=== PATIENT | female | born 1975 | race African-American/Black ===

== ENCOUNTER 2022-10-31 03:00 | Inpatient (IN) | payer MEDICAID ==
[~2022-10-31] VITALS: Ht 162.6 cm; Wt 54.5 kg
[2022-10-31] MEDS ORDERED: ONDANSETRON HCL 4MG/2ML INJ IV STA ×2 (03:03→05:52)
[2022-10-31] MEDS ORDERED: PANTOPRAZOLE SODIUM 40 MG/VIAL IV STA (03:03)
[2022-10-31] MEDS ORDERED: MORPHINE SULFATE 4 MG/ML CPJ (NOT FOR IM USE) IV STA ×2 (03:03→05:52)
[2022-10-31] MEDS ORDERED: MAGNESIUM/ALUMINUM HYDROXIDE/SIMETHICONE 30ML UDC PO STA (03:03)
[2022-10-31] MEDS ORDERED: VISCOUS LIDOCAINE 2% 15 ML UDC PO STA (03:03)
[2022-10-31] MEDS ORDERED: SODIUM CHLORIDE 0.9% 1,000 ML IV ONE ×2 (03:15→06:00)
[2022-10-31 03:41] LABS: BASOPHILS % 3.3 % (0.0-2.0); EOSINOPHILS % 0.9 % (0.0-5.0); HEMATOCRIT. 23.2 % (36.0-48.0); LYMPHOCYTES % 11.5 % (20.0-50.0); MEAN CORPUSCULAR VOLUME 51.5 fL (81.0-99.0); MEAN PLATELET VOLUME 8.3 fl (7.4-10.4); MONOCYTES % 10.9 % (2.0-8.0); NEUTROPHILS % 73.4 % (40.0-76.0); PLATELET 604 x1000/uL (130-400); RED CELL DISTRIBUTION WIDTH 29.1 % (11.6-14.6)
[2022-10-31 03:48] LABS: CHLORIDE 108 mEq/L (98-107)
[2022-10-31 03:51] LABS: PROTHROMBIN TIME 10.9 sec (9.6-11.0)
[2022-10-31 03:56] LABS: HEMOGLOBIN. 6.3 g/dL (12.0-16.0)
[2022-10-31 04:00] LABS: ETHANOL BLOOD < 10 mg/dL
[2022-10-31 04:01] LABS: HCG SCREEN NEGATIVE
[2022-10-31 04:17] LABS: PLATELET ESTIMATE INCREASED
[2022-10-31] MEDS ORDERED: MAGNESIUM/ALUMINUM HYDROXIDE/SIMETHICONE 30ML UDC PO NR (05:15)
[2022-10-31] MEDS ORDERED: PANTOPRAZOLE SODIUM 40 MG/VIAL IV NR (05:15)
[2022-10-31] MEDS ORDERED: ONDANSETRON HCL 4MG/2ML INJ IV NR (05:15)
[2022-10-31] MEDS ORDERED: MORPHINE SULFATE 4 MG/ML CPJ (NOT FOR IM USE) IV NR (05:15)
[2022-10-31] MEDS ORDERED: VISCOUS LIDOCAINE 2% 15 ML UDC PO NR (05:15)
[2022-10-31] MEDS ORDERED: PANTOPRAZOLE SODIUM 40 MG/VIAL IV ONE (06:00)
[2022-10-31 06:23] LABS: AMYLASE 384 IU/L (25-115)
[2022-10-31] MEDS ORDERED: POTASSIUM CHLORIDE 20MEQ TABLET SR PO ONE (08:45)
[2022-10-31] MEDS ORDERED: POTASSIUM CHLORIDE 20MEQ TABLET SR PO NR (10:18)
[2022-10-31 12:06] LABS: HEMATOCRIT. 26.7 % (36.0-48.0); HEMOGLOBIN. 7.5 g/dL (12.0-16.0); MEAN CORPUSCULAR HEMOGLOBIN 15.8 pg (28.0-32.0); MEAN CORPUSCULAR VOLUME 56.1 fL (81.0-99.0); MEAN PLATELET VOLUME 8.7 fl (7.4-10.4); PLATELET 571 x1000/uL (130-400); RED BLOOD CELL COUNT 4.77 mill/uL (4.2-5.4); RED CELL DISTRIBUTION WIDTH 33.9 % (11.6-14.6)
[2022-10-31 12:07] LABS: CHLORIDE 109 mEq/L (98-107)
[2022-10-31 12:16] LABS: TOTAL IRON BINDING CAPACITY 413 ug/dL (250-450)
[2022-10-31 12:53] LABS: VITAMIN B12 SERUM 445 pg/mL (211-911)
[2022-10-31 13:11] LABS: FERRITIN < 5 ng/mL (10-291)
[2022-10-31] MEDS: ONDANSETRON HCL 4MG/2ML INJ IV PRN ×2 (14:33→20:42)
[2022-10-31] MEDS: HYDROCODONE/ACETAMINOPHEN 5/325MG TABLET PO PRN ×2 (14:34→20:41)
[2022-10-31] MEDS: IRON SUCROSE COMPLEX 100 MG/5 ML ML IV SCH (14:34)
[2022-10-31 14:55] VITALS: BP 146/94
[2022-10-31 14:56] VITALS: BP 146/94
[2022-10-31 16:00] VITALS: BP 127/74
[2022-10-31 18:03] LABS: PLATELET ESTIMATE INCREASED
[2022-10-31 18:32] LABS: HEMATOCRIT 28.3 % (36.0-48.0); HEMOGLOBIN 7.9 g/dL (12.0-16.0)
[2022-10-31 20:00] VITALS: BP 130/74
[2022-10-31 23:34] LABS: CLARITY URINE CLEAR (CLEAR); COLOR URINE YELLOW (YELLOW); KETONES URINE TRACE (NEGATIVE); LEUKOCYTE ESTERASE URINE TRACE (NEGATIVE); NITRITE URINE NEGATIVE (NEGATIVE); OCCULT BLOOD URINE NEGATIVE (NEGATIVE); PH URINE >=9.0 (4.5-8.0); PROTEIN URINE TRACE (NEGATIVE); SPECIFIC GRAVITY URINE 1.022 (1.005-1.030)
[2022-10-31 23:57] LABS: *AMPHETAMINES SCREEN URINE NEGATIVE (NEGATIVE); *BARBITURATES SCREEN URINE NEGATIVE (NEGATIVE); *BENZODIAZEPINES SCREEN URINE NEGATIVE (NEGATIVE); METHADONE URINE SCREEN NEGATIVE (NEGATIVE); PHENCYCLIDINE URINE SCREEN NEGATIVE (NEGATIVE)
[2022-11-01] VITALS: BP 131/66
[2022-11-01] LABS: *COCAINE SCREEN URINE PRESUMTIVE POSITIVE (NEGATIVE); CANNABINOID URINE SCREEN PRESUMTIVE POSITIVE (NEGATIVE); OPIATES URINE SCREEN PRESUMTIVE POSITIVE (NEGATIVE)
[2022-11-01 00:40] LABS: HEMATOCRIT 27.1 % (36.0-48.0); HEMOGLOBIN 7.8 g/dL (12.0-16.0)
[2022-11-01 04:00] VITALS: BP 118/82
[2022-11-01 05:56] LABS: HEMATOCRIT 26.4 % (36.0-48.0); HEMOGLOBIN 7.5 g/dL (12.0-16.0)
[2022-11-01 07:09] LABS: AMYLASE 257 IU/L (25-115)
[2022-11-01 08:00] VITALS: BP 113/79
[2022-11-01] MEDS: BISACODYL 5MG TABLET PO SCH (08:11)
[2022-11-01] MEDS: SORBITOL 70% SOLN 30ML PO SCH (08:11)
[2022-11-01] MEDS: ONDANSETRON HCL 4MG/2ML INJ IV PRN ×3 (08:11→22:14)
[2022-11-01] MEDS: HYDROCODONE/ACETAMINOPHEN 5/325MG TABLET PO PRN ×3 (08:12→22:18)
[2022-11-01] MEDS: IRON SUCROSE COMPLEX 100 MG/5 ML ML IV SCH (11:32)
[2022-11-01 12:00] VITALS: BP 135/88
[2022-11-01 12:36] LABS: HEMATOCRIT 28.7 % (36.0-48.0)
[2022-11-01 16:36] VITALS: BP 115/84
[2022-11-01 18:17] LABS: HEMATOCRIT 26.7 % (36.0-48.0); HEMOGLOBIN 7.5 g/dL (12.0-16.0)
[2022-11-01] MEDS ORDERED: NALOXONE HCL 0.4MG/ML VIAL IV PRN (18:30)
[2022-11-01 20:00] VITALS: BP 119/67
[2022-11-02] VITALS: BP 118/60
[2022-11-02 00:52] LABS: HEMATOCRIT 29.4 % (36.0-48.0)
[2022-11-02 04:00] VITALS: BP 145/76
[2022-11-02 04:46] LABS: HEMATOCRIT. 29.3 % (36.0-48.0); HEMOGLOBIN. 8.2 g/dL (12.0-16.0); MEAN CORPUSCULAR HEMOGLOBIN 15.7 pg (28.0-32.0); MEAN CORPUSCULAR VOLUME 56.3 fL (81.0-99.0); MEAN PLATELET VOLUME 8.5 fl (7.4-10.4); PLATELET 781 x1000/uL (130-400); RED CELL DISTRIBUTION WIDTH 35.4 % (11.6-14.6)
[2022-11-02 05:02] LABS: CHLORIDE 105 mEq/L (98-107)
[2022-11-02 05:12] LABS: AMYLASE 298 IU/L (25-115)
[2022-11-02] MEDS: HYDROCODONE/ACETAMINOPHEN 5/325MG TABLET PO PRN ×2 (06:34→11:49)
[2022-11-02] MEDS: ONDANSETRON HCL 4MG/2ML INJ IV PRN ×2 (06:34→21:50)
[2022-11-02] MEDS ORDERED: GADOTERATE MEGLUMINE 5 MMOL/10 ML VIAL IV ONE (07:47)
[2022-11-02 08:00] VITALS: BP 115/72
[2022-11-02] MEDS: BISACODYL 5MG TABLET PO SCH (09:09)
[2022-11-02] MEDS: SORBITOL 70% SOLN 30ML PO SCH (09:09)
[2022-11-02] MEDS ORDERED: POTASSIUM CHLORIDE 20MEQ TABLET SR PO SCH (11:00)
[2022-11-02 12:00] VITALS: BP 120/71
[2022-11-02] MEDS: IRON SUCROSE COMPLEX 100 MG/5 ML ML IV SCH (12:57)
[2022-11-02 14:23] LABS: NUCLEATED RED BLOOD CELLS 1 /100 WBC
[2022-11-02 14:24] LABS: PLATELET ESTIMATE MARKEDLY INCREASED
[2022-11-02] MEDS: DEXT 5%/0.45% NACL 1000ML 1,000 ML IV SCH (15:15)
[2022-11-02 16:00] VITALS: BP 123/84
[2022-11-02 16:52] LABS: HEMATOCRIT 31.3 % (36.0-48.0); HEMOGLOBIN 8.8 g/dL (12.0-16.0)
[2022-11-02 17:01] LABS: INR 1.1; PROTHROMBIN TIME 11.8 sec (9.6-11.0)
[2022-11-02 20:00] VITALS: BP 113/84
[2022-11-02 21:44] LABS: HEMATOCRIT 29.7 % (36.0-48.0); HEMOGLOBIN 8.2 g/dL (12.0-16.0)
[2022-11-02] MEDS ORDERED: MORPHINE SULFATE 2 MG/ML CPJ (NOT FOR IM USE) IV NR (22:00)
[2022-11-03] VITALS (7 sets, daily range): BP systolic 108–138; BP diastolic 56–84
[2022-11-03] MEDS: DEXT 5%/0.45% NACL 1000ML 1,000 ML IV SCH ×3 (01:53→21:50)
[2022-11-03] MEDS: ONDANSETRON HCL 4MG/2ML INJ IV PRN ×3 (04:36→17:38)
[2022-11-03 07:25] LABS: BASOPHILS % 0.6 % (0.0-2.0); EOSINOPHILS % 1.2 % (0.0-5.0); HEMATOCRIT. 30.2 % (36.0-48.0); HEMOGLOBIN. 8.5 g/dL (12.0-16.0); LYMPHOCYTES % 7.4 % (20.0-50.0); MEAN CORPUSCULAR HEMOGLOBIN 16.2 pg (28.0-32.0); MEAN CORPUSCULAR VOLUME 57.7 fL (81.0-99.0); MEAN PLATELET VOLUME 8.4 fl (7.4-10.4); MONOCYTES % 9.3 % (2.0-8.0); NEUTROPHILS % 81.5 % (40.0-76.0); PLATELET 834 x1000/uL (130-400); RED BLOOD CELL COUNT 5.25 mill/uL (4.2-5.4)
[2022-11-03] MEDS: BISACODYL 5MG TABLET PO SCH (08:25)
[2022-11-03] MEDS: SORBITOL 70% SOLN 30ML PO SCH (08:25)
[2022-11-03 09:34] LABS: CHLORIDE 104 mEq/L (98-107)
[2022-11-03 10:31] LABS: AMYLASE 202 IU/L (25-115)
[2022-11-03] MEDS: IRON SUCROSE COMPLEX 100 MG/5 ML ML IV SCH (11:48)
[2022-11-03] MEDS: HYDROCODONE/ACETAMINOPHEN 5/325MG TABLET PO PRN (17:38)
[2022-11-03] MEDS ORDERED: POTASSIUM CHLORIDE 20MEQ TABLET SR PO NR (17:45)
[2022-11-04] VITALS: BP 104/65
[2022-11-04] MEDS: ONDANSETRON HCL 4MG/2ML INJ IV PRN ×2 (00:38→08:29)
[2022-11-04 04:00] VITALS: BP 96/56
[2022-11-04 05:28] VITALS: BP 116/72
[2022-11-04 07:18] LABS: HEMOGLOBIN. 7.3 g/dL (12.0-16.0); MEAN CORPUSCULAR HEMOGLOBIN 15.8 pg (28.0-32.0); MEAN CORPUSCULAR VOLUME 58.4 fL (81.0-99.0); MEAN PLATELET VOLUME 8.5 fl (7.4-10.4); PLATELET 786 x1000/uL (130-400); RED BLOOD CELL COUNT 4.63 mill/uL (4.2-5.4); RED CELL DISTRIBUTION WIDTH 36.6 % (11.6-14.6)
[2022-11-04 08:00] VITALS: BP 117/67
[2022-11-04] MEDS: DEXT 5%/0.45% NACL 1000ML 1,000 ML IV SCH (08:29)
[2022-11-04] MEDS: IRON SUCROSE COMPLEX 100 MG/5 ML ML IV SCH (11:09)
[2022-11-04 12:00] VITALS: BP 125/77
[2022-11-04] MEDS ORDERED: METOCLOPRAMIDE HCL 10MG/2ML VIAL IV NR (12:30)
[2022-11-04 13:04] LABS: AMYLASE 119 IU/L (25-115)
[2022-11-04 14:22] LABS: PLATELET ESTIMATE INCREASED
== END 2022-11-04 13:10 | disposition home or self-care (01) | DRG 253 ==
LOC: ER 03:00 → 8WST 05:59 → EDBEDREQ 06:03 → EDBEDREQTM 06:03 → ENRESERV 11:40
PROVIDERS: ADMIT Internal Medicine; ATTEND Internal Medicine
PROC: 30233N1 Transfusion of Nonautologous Red Blood Cells into Peripheral Vein, Percutaneous Approach (ICD-10-PCS; principal; 2022-10-31)
DX: K92.2 Gastrointestinal hemorrhage, unspecified (principal); K85.90 Acute pancreatitis without necrosis or infection, unspecified; D49.0 Neoplasm of unspecified behavior of digestive system; E87.6 Hypokalemia; K59.00 Constipation, unspecified; F12.90 Cannabis use, unspecified, uncomplicated; D62 Acute posthemorrhagic anemia; F14.90 Cocaine use, unspecified, uncomplicated; Z20.822 Contact with and (suspected) exposure to COVID-19; K64.9 Unspecified hemorrhoids
CPT/HCPCS: 36415; 71045; 74176; 74183; 76705; 80048; 80053; 80076; 80305; 80320; 81003; 82105; 82150; 82607; 82728; 82746; 82947; 82962; 83540; 83550; 83615; 84703; 85014; 85018; 85025; 85044; 86301; 86304; 86850; 86900; 86920; 87426; 93005; 99291; A9577; C1893; C9113; J2270; J2405; J2765; J7030; P9016; G0480